=== PATIENT | female | born 1950 | race Caucasian/White ===

== ENCOUNTER → 2025-01-25 13:57 | Outpatient (REF) | payer MEDICARE, BC, SELFPAY | LOC: HWWDC 13:57 | PROVIDERS: ATTENDING PHYSICIAN Family Medicine | DX: Z12.31 Encounter for screening mammogram for malignant neoplasm of breast (principal) | CPT/HCPCS: 77063; 77067 ==

== ENCOUNTER → 2025-05-10 10:51 | Outpatient (REF) | payer MEDICARE, BC, SELFPAY | LOC: RAD 10:51 | PROVIDERS: ATTENDING PHYSICIAN Family Medicine | DX: M25.50 Pain in unspecified joint (principal); M25.60 Stiffness of unspecified joint, not elsewhere classified | CPT/HCPCS: 73130 ==